=== PATIENT | female | born 1980 | race Caucasian/White ===

== ENCOUNTER 2024-01-04 15:30 | Emergency (ER) | payer SELFPAY ==
[2024-01-04] MEDS ORDERED: Ondansetron PF 4 MG/2 ML Vial ONE (15:46)
[2024-01-04] MEDS ORDERED: Morphine 4 MG/ML VIAL ONE (15:46)
[2024-01-04] MEDS ORDERED: LORazepam 2 MG/ML SYR.(CARPUJECT) ONE (16:50)
[2024-01-04] MEDS ORDERED: Ketorolac Tromethamine 30 MG (1 mL) VIAL ONE (16:51)
[2024-01-04] MEDS ORDERED: PROPOFOL 20 ML ONE (18:25)
[2024-01-04] MEDS ORDERED: Lidocaine 1% PF 5 ML VIAL ONE (18:30)
== END 2024-01-04 20:39 | disposition home or self-care (01) ==
LOC: ERS 15:30
DX: S42.92XA Fracture of left shoulder girdle, part unspecified, initial encounter for closed fracture (principal); F17.210 Nicotine dependence, cigarettes, uncomplicated; W01.0XXA Fall on same level from slipping, tripping and stumbling without subsequent striking against object, initial encounter
CPT/HCPCS: 96374; 96375; J1885; J2060; J2272; J2405; J2704